=== PATIENT | female | born 1980 | race African-American/Black ===

== ENCOUNTER 2016-12-26 09:17 | Emergency (ER) | payer BC ==
[2016-12-26] MEDS ORDERED: ASPIRIN 81 MG TABLET, CHEWABLE PO ONE (09:22)
--- NOTE | 2016-12-26 09:35 | ER Document Report ---
ED Medical Screen (RME) - General Chief Complaint: Chest Pain Stated Complaint: CHEST PAIN Time Seen by Provider: 12/26/16 09:32 Notes: Patient says she has been having pain in the upper lateral left chest region for over a week since she had an illness that involved a lot of coughing. She was producing green phlegm and is not sure if she ran a fever at any time. However, she says she is over the cold and cough now. She just has residual discomfort in the left lateral upper chest, especially when she turns or picks up her young daughter. Patient has acid reflux and thought that might be causing her pain. No history of heart disease. TRAVEL OUTSIDE OF THE [place] IN LAST 30 DAYS: No - Related Data Allergies/Adverse Reactions: No Known Allergies Allergy (Verified 12/26/16 09:19) Past Medical History Endocrine Medical History: Reports: Hx Hypothyroidism Renal/ Medical History: Denies: Hx Peritoneal Dialysis GI Medical History: Reports: Hx Gastroesophageal Reflux Disease Psychiatric Medical History: Denies: Hx Depression Past Surgical History: Reports: Hx Cholecystectomy, Hx Thyroid Surgery - Immunizations Hx Diphtheria, Pertussis, Tetanus Vaccination: Yes - 2011 Physical Exam - Vital signs Vitals: Temp Pulse Resp BP Pulse Ox 98.7 F 74 18 153/101 H 99 12/26/16 09:19 12/26/16 09:19 12/26/16 09:19 12/26/16 09:19 12/26/16 09:19 Course - Vital Signs Vital signs: Temp Pulse Resp BP Pulse Ox 98.7 F 74 18 153/101 H 99 12/26/16 09:19 12/26/16 09:19 12/26/16 09:19 12/26/16 09:19 12/26/16 09:19
--- NOTE | 2016-12-26 10:28 | RADIOLOGY REPORT (SQ) ---
EXAM DESCRIPTION: CHEST SINGLE VIEW COMPLETED DATE/TIME: 12/26/2016 10:11 am REASON FOR STUDY: CHEST PAIN COMPARISON: 04/07/2016 EXAM PARAMETERS: NUMBER OF VIEWS: One view. TECHNIQUE: Single frontal radiographic view of the chest acquired. RADIATION DOSE: NA LIMITATIONS: None. FINDINGS: LUNGS AND PLEURA: No opacities, masses or pneumothorax. No pleural effusion. MEDIASTINUM AND HILAR STRUCTURES: No masses. Contour normal. HEART AND VASCULAR STRUCTURES: Heart normal in size. Normal vasculature. BONES: No acute findings. HARDWARE: None in the chest. OTHER: No other significant finding. IMPRESSION: NO ACUTE RADIOGRAPHIC FINDING IN THE CHEST. TECHNICAL DOCUMENTATION: JOB ID: [id number]
--- NOTE | 2016-12-26 10:41 | ER Document Report ---
HPI - HPI Patient complains to provider of: lateral chest wall pain Onset: Last week Onset/Duration: Persistent Quality of pain: Achy Severity: Severe Pain Level: 4 Context: Patient presents to the emergency department with complaints of upper lateral left chest wall pain for over a week. She reports she has been having a productive cough with green phlegm. Patient is unsure of fever but denies v/d. Reports increased pain when lifting items such as her 50 lb toddler. Patient also reports history of reflux. Has been taking Gas-X without relief of symptoms. Denies history of cardiac disease. Reports she went to her primary care provider this morning, [facility] and they had a 3 hour wait so she came here. Associated Symptoms: Chest pain Exacerbated by: Movement Relieved by: Denies Similar symptoms previously: No Recently seen / treated by doctor: No - REPRODUCTIVE Reproductive: REPORTS: : - DERM Skin Color: Normal Past Medical History - General Information source: Patient Last Menstrual Period: last week - Social History Smoking Status: Current Every Day Smoker Cigarette use (# per day): Yes Frequency of alcohol use: None Drug Abuse: None Occupation: hospital tray service worker Lives with: Family Family History: None Patient has suicidal ideation: No Patient has homicidal ideation: No Endocrine Medical History: Reports: Hx Hypothyroidism Renal/ Medical History: Denies: Hx Peritoneal Dialysis GI Medical History: Reports: Hx Gastroesophageal Reflux Disease Psychiatric Medical History: Denies: Hx Depression Past Surgical History: Reports: Hx Cholecystectomy, Hx Thyroid Surgery - Immunizations Hx Diphtheria, Pertussis, Tetanus Vaccination: Yes - 2011 [employer] Provider Document - CONSTITUTIONAL Agree With Documented VS: Yes Exam Limitations: No Limitations General Appearance: WD/WN, No Apparent Distress - INFECTION CONTROL TRAVEL OUTSIDE OF THE [place] IN LAST 30 DAYS: No - HEENT HEENT: Atraumatic. negative: Conjuctival Injection, Pharyngeal Tenderness, Tympanic Membrane Red - NECK Neck: Normal Inspection, Supple. negative: Lymphadenopathy-Left, Lymphadenopathy-Right - RESPIRATORY Respiratory: Breath Sounds Normal, No Respiratory Distress, Other - Left lateral chest wall tender to palpation no erythema no swelling no warmth O2 Sat by Pulse Oximetry: 99 - CARDIOVASCULAR Cardiovascular: Regular Rate, Regular Rhythm, No Murmur - GI/ABDOMEN Gastrointestinal: Abdomen Soft, Abdomen Non-Tender - BACK Back: Normal Inspection - MUSCULOSKELETAL/EXTREMETIES Musculoskeletal/Extremeties: MAEW, FROM, Non-Tender - NEURO Level of Consciousness: Awake, Alert, Appropriate Motor/Sensory: No Motor Deficit - DERM Integumentary: Warm, Dry Course - Re-evaluation Re-evalutation: 12/26/16 10:55 The patient presents with lateral chest wall tenderness, no signs or symptoms of cardiac disease. X-ray negative for pneumonia. Patient speaking in a clear sentences no shortness of breath. - Vital Signs Vital signs: Temp Pulse Resp BP Pulse Ox 98.7 F 74 18 153/101 H 99 12/26/16 09:19 12/26/16 09:19 12/26/16 09:19 12/26/16 09:19 12/26/16 09:19 - Diagnostic Test Radiology reviewed: Image reviewed, Reports reviewed - Chest x-ray - EKG Interpretation by Me EKG shows normal: Sinus rhythm - Sinus rhythm EKG Discharge - Discharge Clinical Impression: Chest wall pain, Elevated blood pressure reading Condition: Serious Disposition: HOME, SELF-CARE Instructions: Chest Wall Pain ([facility]), Anti-Inflammatory Medication ([facility]) Additional Instructions: *You have been evaluated for chest wall pain, elevated blood pressure reading *Take medication as prescribed *quit smoking *Rest, avoid lifting heavy items *Follow up with a primary care provider within one week *Return to ED for worsening condition, changes, needs *Return to ED if not better in 24 hours Monitor your blood pressure. Your blood pressure was elevated today. This may be because you were anxious, in pain or because you need medication. It is important to follow up with your primary care provider for full evaluation. Prescriptions: Naproxen 500 mg PO BID #20 tablet Forms: Elevated Blood Pressure, Smoking Cessation Education, Return to Work
[2016-12-26] MEDS ORDERED: NAPROXEN 250 MG TABLET PO ONE (10:49)
[2016-12-26 11:18] VITALS: BP 154/96
--- NOTE | 2016-12-26 14:28 | EKG REPORT ---
SEVERITY:- NORMAL ECG - SINUS RHYTHM : Confirmed by: Jaden Hernandez 26-Dec-2016 14:27:47
== END 2016-12-26 11:19 | disposition home or self-care (01) ==
LOC: ER 09:17
DX: R07.89 Other chest pain (principal); R03.0 Elevated blood-pressure reading, without diagnosis of hypertension; R05 Cough; K21.9 Gastro-esophageal reflux disease without esophagitis; F17.210 Nicotine dependence, cigarettes, uncomplicated
CPT/HCPCS: 71010; 93005; 93010; 99285

== ENCOUNTER 2017-03-03 17:33 | Emergency (ER) | payer BC ==
[2017-03-03] MEDS ORDERED: ASPIRIN 81 MG TABLET, CHEWABLE PO ONE (18:27)
[2017-03-03] MEDS ORDERED: PROCHLORPERAZINE MALEATE 10 MG TABLET PO ONE (18:28)
[2017-03-03] MEDS ORDERED: ONDANSETRON 4 MG TAB.RAPDIS PO ONE (18:28)
--- NOTE | 2017-03-03 18:37 | ER Document Report ---
ED General - General Chief Complaint: Headache Stated Complaint: HEADACHE,CHEST PAIN Time Seen by Provider: 03/03/17 18:27 TRAVEL OUTSIDE OF THE [place] IN LAST 30 DAYS: No - HPI Patient complains to provider of: Chest pain headache Notes: Patient coming in tearful stating that she had a hard day at work today and has developed a headache feels like a band across her head and also chest pain patient states left sided chest pain reproducible to movement and palpation. Patient states similar to episodes in the past and her blood pressure has been elevated when she gets upset. Patient states compliance with her medications. Denies any fever chills nausea vomiting diarrhea. Denies any trauma. - Related Data Allergies/Adverse Reactions: No Known Allergies Allergy (Verified 03/03/17 17:39) Past Medical History - Social History Smoking Status: Unknown if Ever Smoked Family History: Reviewed & Not Pertinent Endocrine Medical History: Reports: Hx Hypothyroidism Renal/ Medical History: Denies: Hx Peritoneal Dialysis GI Medical History: Reports: Hx Gastroesophageal Reflux Disease Psychiatric Medical History: Denies: Hx Depression Past Surgical History: Reports: Hx Cholecystectomy, Hx Gynecologic Surgery - D & C, Hx Thyroid Surgery - Immunizations Hx Diphtheria, Pertussis, Tetanus Vaccination: Yes - 2011 Review of Systems - Review of Systems Constitutional: No symptoms reported EENT: No symptoms reported Cardiovascular: Chest pain Respiratory: No symptoms reported Gastrointestinal: No symptoms reported Genitourinary: No symptoms reported Female Genitourinary: No symptoms reported Musculoskeletal: No symptoms reported Skin: No symptoms reported Hematologic/Lymphatic: No symptoms reported Neurological/Psychological: Headaches -: Yes All other systems reviewed and negative Physical Exam - Vital signs Vitals: Temp Pulse Resp BP Pulse Ox 99.6 F 75 18 152/85 H 100 03/03/17 17:37 03/03/17 17:37 03/03/17 17:37 03/03/17 17:37 03/03/17 17:37 Interpretation: Normal - General General appearance: Appears well, Alert - HEENT Head: Normocephalic, Atraumatic Eyes: Normal Pupils: PERRL - Respiratory Respiratory status: No respiratory distress Chest status: Tender - Tenderness to palpation left upper chest reproduces patient's symptoms. Breath sounds: Normal Chest palpation: Normal - Cardiovascular Rhythm: Regular Heart sounds: Normal auscultation Murmur: No - Abdominal Inspection: Normal Distension: No distension Bowel sounds: Normal Tenderness: Nontender Organomegaly: No organomegaly - Back Back: Normal, Nontender - Extremities General upper extremity: Normal inspection, Nontender, Normal color, Normal ROM , Normal temperature General lower extremity: Normal inspection, Nontender, Normal color, Normal ROM , Normal temperature, Normal weight bearing. No: López's sign - Neurological Neuro grossly intact: Yes Cognition: Normal Orientation: AAOx4 Niles Coma Scale Eye Opening: Spontaneous Jimenez Coma Scale Verbal: Oriented Jimenez Coma Scale Motor: Obeys Commands Niles Coma Scale Total: 15 Speech: Normal Motor strength normal: LUE, RUE, LLE, RLE Sensory: Normal - Psychological Associated symptoms: Normal affect, Normal mood - Skin Skin Temperature: Warm Skin Moisture: Dry Skin Color: Normal Course - Re-evaluation Re-evalutation: 03/03/17 20:02 The patient presents with headache without signs of [employer]UD[employer] DEAN bleed, stroke, infection , or other serious etiology. The patient is neurologically intact. Given the extremely low risk of these diagnoses further testing and evaluation for these possibilities does not appear to be indicated at this time. The patient has been instructed to return if the symptoms worsen or change in any way.. The patient has atypical chest pain as the patient's chest pain is not suggestive of pulmonary embolus, cardiac ischemia, aortic dissection, or other serious etiology. Given the extremely low risk of these diagnoses further testing and evaluation for these possibilities does not appear to be indicated at this time. The patient has been instructed to return if the symptoms worsen or change in any way. - Vital Signs Vital signs: Temp Pulse Resp BP Pulse Ox 99.6 F 75 18 152/85 H 100 03/03/17 17:37 03/03/17 17:37 03/03/17 17:37 03/03/17 17:37 03/03/17 17:37 - Laboratory Result Diagrams: 03/03/17 18:47 03/03/17 18:47 Laboratory results interpreted by me: 03/03/17 03/03/17 18:47 18:47 RDW 14.1 H AST 13 L Discharge - Discharge Clinical Impression: Headache, Chest wall pain, Elevated blood pressure Condition: Good Disposition: HOME, SELF-CARE Instructions: Chest Wall Pain ([facility]), Chest Pain of Unclear Cause ([facility]), Headache ([facility]) Additional Instructions: I do believe your symptoms today are more likely caused by stress causing her headache elevated blood pressure and chest pain. I am pleased to tell you that your laboratory findings were all negative for any serious pathology. Please make sure he follow-up with your primary care physician. Take the 2 medications prescribed together for your headache if it does return continue to monitor blood pressure at home Prescriptions: Ondansetron [Zofran Odt 4 mg Tablet] 4 mg PO Q6 #20 tab.rapdis Prochlorperazine Maleate [Compazine] 5 mg PO Q6 #20 tablet Forms: Return to Work
[2017-03-03 19:05] LABS: ABSOLUTE BASOPHILS # (AUTO) 0.1 10^3/uL (0.0-0.2); ABSOLUTE EOSINOPHILS # (AUTO) 0.1 10^3/uL (0.0-0.6); ABSOLUTE LYMPHOCYTES (AUTO) 3.9 10^3/uL (0.5-4.7); ABSOLUTE MONOCYTES (AUTO) 0.4 10^3/uL (0.1-1.4); ABSOLUTE NEUT (AUTO) 5.6 10^3/uL (1.7-8.2); BASOPHILS % (AUTO) 0.6 % (0-2); EOSINOPHILS % (AUTO) 1.3 % (0-6); HEMATOCRIT 43.8 % (36.0-47.0); HEMOGLOBIN 15.3 g/dL (12.0-15.5); HGB HCT DIFFERENCE 2.1; LYMPHOCYTES % (AUTO) 38.6 % (13-45); MEAN CORPUSCULAR HEMOGLOBIN 30.4 pg (27.0-33.4); MEAN CORPUSCULAR HGB CONC 34.8 g/dL (32.0-36.0); MEAN CORPUSCULAR VOLUME 87 fl (80-97); RED BLOOD COUNT 5.02 10^6/uL (3.72-5.28); RED CELL DISTRIBUTION WIDTH 14.1 % (11.5-14.0); SEGMENTED NEUTROPHILS % (AUTO) 55.5 % (42-78); WHITE BLOOD COUNT 10.2 10^3/uL (4.0-10.5)
--- NOTE | 2017-03-03 19:09 | RADIOLOGY REPORT (SQ) ---
EXAM DESCRIPTION: CHEST PA/LAT COMPLETED DATE/TIME: 03/03/2017 6:58 pm REASON FOR STUDY: cp COMPARISON: 12/26/2016 EXAM PARAMETERS: NUMBER OF VIEWS: two views TECHNIQUE: Digital Frontal and Lateral radiographic views of the chest acquired. RADIATION DOSE: NA LIMITATIONS: none FINDINGS: LUNGS AND PLEURA: No opacities, masses or pneumothorax. No pleural effusion. MEDIASTINUM AND HILAR STRUCTURES: No masses or contour abnormalities. HEART AND VASCULAR STRUCTURES: Heart normal size. No evidence for failure. BONES: No acute findings. HARDWARE: None in the chest. OTHER: No other significant finding. IMPRESSION: NO SIGNIFICANT RADIOGRAPHIC FINDING IN THE CHEST. TECHNICAL DOCUMENTATION: JOB ID: [id number] [employer]- All Rights Reserved
[2017-03-03 19:21] LABS: ALANINE AMINOTRANSFERASE 20 U/L (9-52); ALBUMIN 4.9 g/dL (3.5-5.0); ALKALINE PHOSPHATASE 63 U/L (38-126); ANION GAP 11 (5-19); ASPARTATE AMINO TRANSFERASE 13 U/L (14-36); BILIRUBIN,DIRECT 0.4 mg/dL (0.0-0.4); BILIRUBIN,TOTAL 0.4 mg/dL (0.2-1.3); BLOOD UREA NITROGEN 10 mg/dL (7-20); CALCIUM 9.5 mg/dL (8.4-10.2); CARBON DIOXIDE 24 mmol/L (22-30); CHLORIDE 104 mmol/L (98-107); CREATINE KINASE 85 U/L (30-135); CREATININE RESULT 0.84 mg/dL (0.52-1.25); GLUCOSE 93 mg/dL (75-110); LIPASE 98.1 U/L (23-300); MAGNESIUM 1.9 mg/dL (1.6-2.3); SODIUM 138.9 mmol/L (137-145); TOTAL PROTEIN 7.9 g/dL (6.3-8.2)
[2017-03-03 19:32] LABS: CREATINE KINASE MB 0.27 ng/mL (<4.55)
[2017-03-03 19:35] LABS: TROPONIN I < 0.012 ng/mL
[2017-03-03 20:13] VITALS: BP 126/69
--- NOTE | 2017-03-04 16:34 | EKG REPORT ---
SEVERITY:- BORDERLINE ECG - SINUS RHYTHM PROBABLE LEFT ATRIAL ABNORMALITY BORDERLINE T ABNORMALITIES, INFERIOR LEADS : Confirmed by: Jaden Hernandez 04-Mar-2017 16:33:56
== END 2017-03-03 20:11 | disposition home or self-care (01) ==
LOC: ER 17:33
DX: R51 Headache (principal); R07.89 Other chest pain; R03.0 Elevated blood-pressure reading, without diagnosis of hypertension
CPT/HCPCS: 93005; 99285; 36415; 82553; 82550; 83690; 83735; 85025; 80053; 84484; 71020; 93010; S0119; S0183

== ENCOUNTER 2017-10-05 17:02 | Emergency (ER) | payer OTHER ==
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
[2017-10-05 18:22] VITALS: BP 106/71
== END 2017-10-05 18:23 | disposition home or self-care (01) ==
LOC: ER 17:02
DX: O9A.219 Injury, poisoning and certain other consequences of external causes complicating pregnancy, unspecified trimester (principal); S16.1XXA Strain of muscle, fascia and tendon at neck level, initial encounter; V43.02XA Car driver injured in collision with other type car in nontraffic accident, initial encounter; Y92.481 Parking lot as the place of occurrence of the external cause; O99.330 Smoking (tobacco) complicating pregnancy, unspecified trimester; Z3A.00 Weeks of gestation of pregnancy not specified
CPT/HCPCS: 99283

== ENCOUNTER 2018-10-03 02:23 | Emergency (ER) | payer BC, OTHER ==
[2018-10-03] MEDS ORDERED: ONDANSETRON HCL INJ/PF 4 MG/2 ML SDV IV ONE (03:11)
[2018-10-03] MEDS ORDERED: MECLIZINE HCL 25 MG TABLET PO ONE (03:11)
[2018-10-03 03:25] LABS: ABSOLUTE BASOPHILS # (AUTO) 0.1 10^3/uL (0.0-0.2); ABSOLUTE EOSINOPHILS # (AUTO) 0.1 10^3/uL (0.0-0.6); ABSOLUTE LYMPHOCYTES (AUTO) 2.2 10^3/uL (0.5-4.7); ABSOLUTE MONOCYTES (AUTO) 0.4 10^3/uL (0.1-1.4); ABSOLUTE NEUT (AUTO) 8.5 10^3/uL (1.7-8.2); BASOPHILS % (AUTO) 0.8 % (0-2); EOSINOPHILS % (AUTO) 0.6 % (0-6); HEMATOCRIT 42.3 % (36.0-47.0); HEMOGLOBIN 14.8 g/dL (12.0-15.5); LYMPHOCYTES % (AUTO) 19.7 % (13-45); MEAN CORPUSCULAR HEMOGLOBIN 30.4 pg (27.0-33.4); MEAN CORPUSCULAR VOLUME 87 fl (80-97); MONOCYTES % (AUTO) 3.8 % (3-13); PLATELET COUNT 158 10^3/uL (150-450); RED BLOOD COUNT 4.87 10^6/uL (3.72-5.28); RED CELL DISTRIBUTION WIDTH 13.6 % (11.5-14.0); SEGMENTED NEUTROPHILS % (AUTO) 75.1 % (42-78); TOTAL CELLS COUNTED % (AUTO) 100 %; WHITE BLOOD COUNT 11.3 10^3/uL (4.0-10.5)
[2018-10-03 03:29] LABS: APPEARANCE,URINE CLEAR; BILIRUBIN,URINE NEGATIVE (NEGATIVE); COLOR,URINE STRAW; GLUCOSE, URINE NEGATIVE (NEGATIVE); KETONES,URINE NEGATIVE (NEGATIVE); LEUKOCYTE ESTERASE,URINE NEGATIVE (NEGATIVE); NITRITE,URINE NEGATIVE (NEGATIVE); PROTEIN,URINE NEGATIVE (NEGATIVE); UROBILINOGEN,URINE NEGATIVE mg/dL (<2.0)
[2018-10-03 03:52] LABS: ALANINE AMINOTRANSFERASE 9 U/L (9-52); ALBUMIN 4.9 g/dL (3.5-5.0); ALKALINE PHOSPHATASE 68 U/L (38-126); ANION GAP 11 (5-19); ASPARTATE AMINO TRANSFERASE 14 U/L (14-36); BILIRUBIN,DIRECT 0.3 mg/dL (0.0-0.4); BILIRUBIN,TOTAL 0.5 mg/dL (0.2-1.3); BLOOD UREA NITROGEN 12 mg/dL (7-20); CALCIUM 9.7 mg/dL (8.4-10.2); CARBON DIOXIDE 24 mmol/L (22-30); CHLORIDE 104 mmol/L (98-107); GLUCOSE 113 mg/dL (75-110); POTASSIUM 3.8 mmol/L (3.6-5.0); SODIUM 138.6 mmol/L (137-145); TOTAL PROTEIN 7.5 g/dL (6.3-8.2)
--- NOTE | 2018-10-03 04:03 | ER Document Report ---
ED General - General Chief Complaint: High Blood Pressure Stated Complaint: BLOOD PRESSURE ISSUE Time Seen by Provider: 10/03/18 03:00 TRAVEL OUTSIDE OF THE [place] IN LAST 30 DAYS: No - HPI Notes: Patient presents to the emergency department for evaluation. She states she was getting ready for bed. She felt sudden onset of dizziness. Every time she moved she felt as if the world was spinning. She did have some associated nausea but no emesis. She states she was trying to turn around in her bed to get comfortable, every time she turned the spinning sensation returned. The patient then called EMS. She was told that her blood pressure was elevated. At that point she decided to take her lisinopril. She admits that she is not very compliant with his medication. The patient denies any visual changes. No difficulty seeing, speaking, swallowing. Moving arms and legs without difficulty. No recent head traumas. She has had some recent nasal drainage and URI type symptoms. She is urinating normally. No chest pain, no difficulty breathing. - Related Data Allergies/Adverse Reactions: No Known Allergies Allergy (Verified 10/05/17 17:04) Past Medical History - General Information source: Patient - Social History Smoking Status: Never Smoker Family History: Hypertension, Other - Congestive heart failure Patient has suicidal ideation: No Patient has homicidal ideation: No - Past Medical History Cardiac Medical History: Reports: Hx Hypertension Endocrine Medical History: Reports: Hx Hypothyroidism Renal/ Medical History: Denies: Hx Peritoneal Dialysis GI Medical History: Reports: Hx Gastroesophageal Reflux Disease Psychiatric Medical History: Denies: Hx Depression Past Surgical History: Reports: Hx Cholecystectomy, Hx Gynecologic Surgery - D & C, Hx Thyroid Surgery - Immunizations Hx Diphtheria, Pertussis, Tetanus Vaccination: Yes - 2011 Review of Systems - Review of Systems Constitutional: No symptoms reported EENT: See HPI Cardiovascular: No symptoms reported Respiratory: No symptoms reported Gastrointestinal: See HPI Female Genitourinary: No symptoms reported Musculoskeletal: No symptoms reported Skin: No symptoms reported Neurological/Psychological: No symptoms reported Physical Exam - Vital signs Vitals: Temp Pulse Resp BP Pulse Ox 98.5 F 83 16 146/91 H 100 10/03/18 02:31 10/03/18 02:31 10/03/18 02:31 10/03/18 02:31 10/03/18 02:31 - Notes Notes: Vital signs reviewed, please refer to chart. Patient is normocephalic, atraumatic. Pupils equal round, reactive to light. TMs are pearly granados with good light reflex bilaterally. Neck is supple without meningismus. Heart is regular rate and rhythm. Lungs are clear to auscultation bilaterally. Abdomen is soft, nontender, normoactive bowel sounds throughout. Extremities without cyanosis, clubbing, edema. Peripheral pulses are equal. Skin is warm and dry. Patient is awake, alert, oriented x3. Mild horizontal nystagmus noted. Cranial nerves II through XII are grossly intact without focal neurological deficits. Strength is plus 5 out of 5 bilateral upper and lower extremities. No pronator drift. Intact finger nose finger, rapid alternating movements, heel to xiong. Course - Re-evaluation Re-evalutation: 10/03/18 04:05 Patient presents to the emergency department for evaluation of dizziness and elevated blood pressure. This patient has a known diagnosis of hypertension and is noncompliant with her medications. Certainly that is reason enough her blood pressure to be elevated. She does have findings most consistent with positional vertigo. Her neurological exam reveals no significant abnormality. Laboratory investigations are unremarkable. The importance of being compliant with her medications was dressed. She was medicated here with meclizine and Zofran, feeling significantly improved. Blood pressure improved without intervention. We will have her follow-up with primary care, she is to return to the ED with worsening or new concerning symptoms of any sort. 10/03/18 04:08 - Vital Signs Vital signs: Temp Pulse Resp BP Pulse Ox 98.5 F 83 16 146/91 H 100 10/03/18 02:31 10/03/18 02:31 10/03/18 02:31 10/03/18 02:31 10/03/18 02:31 - Laboratory Result Diagrams: 10/03/18 03:16 10/03/18 03:16 Laboratory results interpreted by me: 10/03/18 10/03/18 10/03/18 02:50 03:16 03:16 WBC 11.3 H Absolute Neutrophils 8.5 H Glucose 113 H Urine Blood MODERATE H Discharge - Discharge Clinical Impression: Vertigo Hypertension Qualifiers: Hypertension type: unspecified Qualified Code(s): I10 - Essential (primary) hypertension Disposition: HOME, SELF-CARE Instructions: High Blood Pressure, Requiring Treatment ([facility]), Vertigo ([facility]) Additional Instructions: Take your home medications as prescribed. Take Zofran as needed for nausea, meclizine as needed for dizziness. Follow-up with your doctor in 1-2 weeks. Return to the emergency department with worsening or new concerning symptoms of any sort.
[2018-10-03 04:58] VITALS: BP 138/77
== END 2018-10-03 04:59 | disposition home or self-care (01) ==
LOC: ER 02:23
DX: I10 Essential (primary) hypertension (principal); Z91.14 Patient's other noncompliance with medication regimen; R42 Dizziness and giddiness; R11.0 Nausea; R09.89 Other specified symptoms and signs involving the circulatory and respiratory systems
CPT/HCPCS: 99283; 96374; 36415; 85025; 80053; 81001; J2405

== ENCOUNTER 2019-04-08 12:18 | Emergency (ER) | payer OTHER ==
[2019-04-08] MEDS ORDERED: LISINOPRIL 10 MG TABLET PO ONE (12:48)
--- NOTE | 2019-04-08 12:50 | ER Document Report ---
ED Medical Screen (RME) - General Chief Complaint: High Blood Pressure Stated Complaint: BLOOD PRESSURE ISSUES Time Seen by Provider: 04/08/19 12:44 Mode of Arrival: Ambulatory Information source: Patient Notes: Patient is a 38-year-old female with past medical history of hypertension presenting with complaints of elevated blood pressure. Patient reports she has not taken her lisinopril 10 mg for approximately 2 weeks as she states that she does not think she needs it. She states that her blood pressure is usually running in the normal range unless she is stressed. Exam: Patient alert, oriented, no acute distress noted. Patient answering all questions appropriately. Heart sounds S1-S2 present with no ectopy noted. I have greeted and performed a rapid initial assessment of this patient. A comprehensive ED assessment and evaluation of the patient, analysis of test results and completion of the medical decision making process will be conducted by additional ED providers. I have specifically instructed the patient or family members with the patient to immediately return to any nursing staff should anything change in the patient's condition or with their chief complaint. This medical record was dictated with voice recognizing software. There may be grammatical, syntax errors that are unintended. TRAVEL OUTSIDE OF THE [place] IN LAST 30 DAYS: No - Related Data Allergies/Adverse Reactions: No Known Allergies Allergy (Verified 10/05/17 17:04) Past Medical History - Past Medical History Cardiac Medical History: Reports: Hx Hypertension Endocrine Medical History: Reports: Hx Hypothyroidism Renal/ Medical History: Denies: Hx Peritoneal Dialysis GI Medical History: Reports: Hx Gastroesophageal Reflux Disease Psychiatric Medical History: Denies: Hx Depression Past Surgical History: Reports: Hx Cholecystectomy, Hx Gynecologic Surgery - D & C, Hx Thyroid Surgery - Immunizations Hx Diphtheria, Pertussis, Tetanus Vaccination: Yes - 2011 Physical Exam - Vital signs Vitals: Temp Pulse Resp BP Pulse Ox 98.7 F 81 16 187/96 H 98 04/08/19 12:04/08/19 12:23 04/08/19 12:04/08/19 12:04/08/19 12:23 Course - Vital Signs Vital signs: Temp Pulse Resp BP Pulse Ox 98.7 F 81 16 187/96 H 98 04/08/19 12:23 04/08/19 12:23 04/08/19 12:23 04/08/19 12:23 04/08/19 12:23
[2019-04-08] MEDS ORDERED: IBUPROFEN 600 MG TABLET PO ONE (12:52)
[2019-04-08 13:50] VITALS: BP 147/78
--- NOTE | 2019-04-08 14:11 | ER Document Report ---
HPI - HPI Time Seen by Provider: 04/08/19 12:44 Pain Level: 3 - REPRODUCTIVE Reproductive: DENIES: : - DERM Skin Color: Normal Past Medical History - General Information source: Patient - Social History Smoking Status: Current Every Day Smoker Chew tobacco use (# tins/day): No Frequency of alcohol use: None Drug Abuse: None Family History: Hypertension, Other - Congestive heart failure Patient has suicidal ideation: No Patient has homicidal ideation: No - Past Medical History Cardiac Medical History: Reports: Hx Hypertension Endocrine Medical History: Reports: Hx Hypothyroidism Renal/ Medical History: Denies: Hx Peritoneal Dialysis GI Medical History: Reports: Hx Gastroesophageal Reflux Disease Psychiatric Medical History: Denies: Hx Depression Past Surgical History: Reports: Hx Cholecystectomy, Hx Gynecologic Surgery - D & C, Hx Thyroid Surgery - Immunizations Hx Diphtheria, Pertussis, Tetanus Vaccination: Yes - 2011 Vertical Provider Document - INFECTION CONTROL TRAVEL OUTSIDE OF THE [place] IN LAST 30 DAYS: No Course - Vital Signs Vital signs: Temp Pulse Resp BP Pulse Ox 98.4 F 79 18 147/78 H 100 04/08/19 13:48 04/08/19 13:48 04/08/19 13:48 04/08/19 13:48 04/08/19 13:48 Discharge - Discharge Clinical Impression: Hypertension Qualifiers: Hypertension type: unspecified Qualified Code(s): I10 - Essential (primary) hypertension Condition: Stable Disposition: HOME, SELF-CARE Additional Instructions: You were seen in the emergency department today for an episode of elevated blood pressure. It is very important to take medications exactly as prescribed. I would highly recommend contacting her primary care physician for possible changing of your blood pressure medication since you do not like all of the side effects. Please return to the emergency department for any new or worsening symptoms. Prescriptions: Lisinopril [Prinivil] 10 mg PO DAILY #30 tablet Levothyroxine Sodium [Synthroid] 200 mcg PO DAILY #30 tablet
== END 2019-04-08 14:19 | disposition home or self-care (01) ==
LOC: ER 12:18
DX: I10 Essential (primary) hypertension (principal); F17.200 Nicotine dependence, unspecified, uncomplicated; E03.9 Hypothyroidism, unspecified; Z90.49 Acquired absence of other specified parts of digestive tract
CPT/HCPCS: 99283